=== PATIENT | male | born 1995 | race Caucasian/White ===

== ENCOUNTER 2018-06-17 22:41 | Emergency (ER) | payer MEDICAID ==
[~2018-06-17] VITALS: Ht 182.9 cm; Wt 83.9 kg
[2018-06-17] MEDS ORDERED: NKM (22:56)
--- NOTE | 2018-06-17 23:15 | NUR ---
ED Nurse Note: Pt arrived ED from home. C/o right ankle injuried during dancing today. Pt is A/O X 4. VSS.
[2018-06-18] MEDS ORDERED: IBUPROFEN600 MG ORAL (00:46)
--- NOTE | 2018-06-18 00:46 | Emergency Room Report ---
History of Present Illness General Chief Complaint: Lower Extremity Injury Source: Patient Present Illness HPI Is a 23-year-old male with no past medical history. He presents with chief when a right ankle/foot pain. He was at his sister waiting and was dancing. He said he came down and roll his ankle area he complaining of swelling to the right foot area. He was splinted and came here for evaluation. Pain is 9 out of 10. Unable to bear weight on it. No nausea no vomiting. No other injury. No knee pain. Allergies: Coded Allergies: No Known Allergies (Unverified , 06/17/18) Patient History Past Medical History: see triage record, old chart reviewed Past Surgical History: none Pertinent Family History: none Social History: Denies: smoking Immunizations: other Reviewed Nursing Documentation: PMH: Agreed; PSxH: Agreed Nursing Documentation-PMH Past Medical History: No Stated History Review of Systems Eye: Denies: eye pain, blurred vision ENT: Denies: ear pain, nose congestion, throat swelling Respiratory: Denies: cough, shortness of breath Cardiovascular: Denies: chest pain, palpitations Gastrointestinal: Denies: abdominal pain, diarrhea, nausea, vomiting Musculoskeletal: Reports: joint pain, joint swelling; Denies: back pain Skin: Denies: rash Neurological: Denies: headache, numbness Endocrine: Denies: increased thirst, increased urine Hematologic/Lymphatic: Denies: easy bruising All Other Systems: negative except mentioned in HPI Physical Exam Vital Signs Date Time Temp Pulse Resp B/P (MAP) Pulse Ox O2 Delivery O2 Flow Rate FiO2 06/17/18 22:52 98.2 68 16 123/70 95 Room Air vitals normal Sp02 EP Interpretation: reviewed, normal General Appearance: well appearing, no apparent distress, alert Head: normocephalic, atraumatic Eyes: bilateral eye PERRL, bilateral eye EOMI ENT: hearing grossly normal, normal pharynx Neck: full range of motion, supple, no meningismus Respiratory: chest non-tender, lungs clear, normal breath sounds Cardiovascular #1: regular rate, rhythm, no murmur Gastrointestinal: normal bowel sounds, non tender, no mass, no organomegaly, no bruit, non-distended Musculoskeletal: back normal, normal range of motion, other - Right ankle: He has swelling and tenderness to the anterior fibular ligament area. Mild tenderness over the base of the fifth metatarsal bone. Ankle is stable. No tenderness over the malleoli. Dorsalis pedis pulse 2+. Neurologic: alert, oriented x3 Psychiatric: mood/affect normal Skin: warm/dry Procedures Splinting Splinting : Consent: Verbal Location: Right ankle Pre-Made Type: aircast Pre-Proc Neuro Vasc Exam: normal Post-Proc Neuro Vasc Exam: normal Patient Tolerated: Well Complications: None Medical Decision Making Diagnostic Impression: Primary Impression: Ankle sprain Qualified Codes: S93.491A - Sprain of other ligament of right ankle, initial encounter ER Course Patient with ankle sprain. No fracture dislocation. We'll discharge home. Other X-Ray Diagnostic Results Other X-Ray Diagnostic Results : X-Ray ordered: Right Foot x-rays # of Views/Limited Vs Complete: 3 View Indication: Pain EP Interpretation: Yes Interpretation: no dislocation, no soft tissue swelling, no fractures Impression: No acute disease Electronically Signed by: Durga El mD Last Vital Signs Date Time Temp Pulse Resp B/P (MAP) Pulse Ox O2 Delivery O2 Flow Rate FiO2 06/17/18 22:52 98.2 68 16 123/70 95 Room Air Status: improved Disposition: HOME, SELF-CARE Condition: Stable Scripts Ibuprofen* (MOTRIN*) 600 Mg Tablet 600 MG ORAL THREE TIMES A DAY, #30 TAB 0 Refills Prov: Durga El MD 06/18/18 Referrals: [facility] (PCP) Patient Instructions: Ankle Sprain Additional Instructions: Elevate leg. Ice pack to the area. Worse splint for comfort. Use crutches as needed. Follow-up with your DrTamra in 7 days. Return if worse. Durga El MD Jun 18, 2018 00:46
[2018-06-18 00:50] VITALS: BP 124/72
--- NOTE | 2018-06-18 00:50 | NUR ---
ER DISCHARGE NOTE: Patient is cleared to be discharged per Dr. El. X-ray done, no fracture was noted at this time. Crutches provided. Pt is aox4, on room air, with stable vital signs, pt was given dc and prescription instructions, pt was able to verbalize understanding, pt id band removed, pt is able to ambulate with Crutches , pt took all belongings.
--- NOTE | 2018-06-18 11:41 | Diagnostic Imaging Report ---
Indication: Right foot pain Technique: 3 views right foot Comparison: none Findings: There is mild hallux valgus. No acute fractures. No dislocations. The joint spaces are preserved. Impression: Negative
== END 2018-06-18 00:50 | disposition home or self-care (01) ==
LOC: EMR 06-18 00:22
DX: S93.491A Sprain of other ligament of right ankle, initial encounter (principal); X50.1XXA Overexertion from prolonged static or awkward postures, initial encounter; Y93.41 Activity, dancing; Y92.019 Unspecified place in single-family (private) house as the place of occurrence of the external cause
CPT/HCPCS: 29515; 99283